=== PATIENT | female | born 1950 | race Two or more races ===

== ENCOUNTER 2019-03-11 12:24 | Outpatient (CLI) | payer OTHER | END 2019-03-11 15:20 | disposition home or self-care (01) | LOC: MRI 12:24 | DX: M22.02 Recurrent dislocation of patella, left knee (principal); S83.005A Unspecified dislocation of left patella, initial encounter; M25.562 Pain in left knee | CPT/HCPCS: 73721 ==

== ENCOUNTER 2019-03-14 14:07 | Outpatient (CLI) | payer OTHER | END 2019-03-14 14:16 | disposition home or self-care (01) | LOC: RAD 14:07 | DX: R16.0 Hepatomegaly, not elsewhere classified (principal); M54.2 Cervicalgia; M54.5 Low back pain ==

== ENCOUNTER 2021-02-15 11:05 | Outpatient (CLI) | payer OTHER | END 2021-02-15 11:07 | disposition home or self-care (01) | LOC: LAB 11:05 | DX: R79.89 Other specified abnormal findings of blood chemistry (principal) ==

== ENCOUNTER 2023-12-27 09:49 | Outpatient (CLI) | payer OTHER | END 2023-12-27 10:01 | disposition home or self-care (01) | LOC: MRI 09:49 | PROVIDERS: ATTEND Orthopaedic Surgery Sports Medicine | DX: M25.521 Pain in right elbow (principal); M25.522 Pain in left elbow; M25.562 Pain in left knee ==

== ENCOUNTER 2024-10-09 09:30 | Outpatient (CLI) | payer OTHER | END 2024-10-09 09:41 | disposition home or self-care (01) | LOC: TOM 09:30 | PROVIDERS: ATTEND Anesthesiology | DX: M54.50 Low back pain, unspecified (principal); M53.0 Cervicocranial syndrome; M54.17 Radiculopathy, lumbosacral region; M54.16 Radiculopathy, lumbar region ==